=== PATIENT | male | born 2000 | race Caucasian/White ===

== ENCOUNTER → 2021-03-12 00:01 | Outpatient (BNVA) | payer SELFPAY | PROVIDERS: Family Provider Nurse Practitioner Family; Visit Provider Nurse Practitioner Family | DX: R07.9 Chest pain, unspecified (principal); R10.11 Right upper quadrant pain; K21.9 Gastro-esophageal reflux disease without esophagitis; R03.0 Elevated blood-pressure reading, without diagnosis of hypertension; Z68.43 Body mass index [BMI] 50.0-59.9, adult; F17.210 Nicotine dependence, cigarettes, uncomplicated | CPT/HCPCS: 80053; 80061; 82607; 83036; 83735; 84443; 85025 ==

== ENCOUNTER → 2021-04-19 14:00 | Outpatient (BNVA) | payer SELFPAY | PROVIDERS: PCP Nurse Practitioner Family; Visit Provider Nurse Practitioner Family | DX: R74.01 Elevation of levels of liver transaminase levels (principal); D72.829 Elevated white blood cell count, unspecified | CPT/HCPCS: 84460; 85025 ==

== ENCOUNTER → 2021-04-20 09:37 | Outpatient (BNVA) | payer SELFPAY | PROVIDERS: PCP Nurse Practitioner Family; Visit Provider Nurse Practitioner Family | DX: R03.0 Elevated blood-pressure reading, without diagnosis of hypertension (principal); R74.01 Elevation of levels of liver transaminase levels; D72.829 Elevated white blood cell count, unspecified | CPT/HCPCS: 80076 ==

== ENCOUNTER → 2021-05-07 16:30 | Outpatient (BNVA) | payer SELFPAY | PROVIDERS: PCP Nurse Practitioner Family; Visit Provider Nurse Practitioner Family | DX: R79.89 Other specified abnormal findings of blood chemistry (principal) | CPT/HCPCS: 86705; 86706; 86709; 86803; 87340 ==

== ENCOUNTER 2021-06-20 08:32 | Outpatient (CLI) | payer SELFPAY ==
--- NOTE | 2021-06-20 08:45 | US_ITS ---
WS: [id number] ULTRASOUND ABDOMEN CLINICAL INFORMATION: R10.11 - Right upper quadrant pain COMPARISON: None. FINDINGS: Technically difficult examination due to body habitus. Liver Size: Enlarged Craniocaudal length: Measurements not obtained due to body habitus Echogenicity: Diffuse fatty infiltration Surface nodularity: None. Mass (size and location): None. Bile ducts Intrahepatic ducts: Normal. Common bile duct diameter: Not visualized Gallbladder Difficult to visualize but appears normal Gallstones: None. Gallbladder sludge: None. Gallbladder wall thickening: None. Pericholecystic fluid: None. Sonographic Colby sign: Absent. Pancreas Not well seen Spleen Splenomegaly: Enlarged Craniocaudal length: 16.0 cm. Right kidney: Normal where visualized Hydronephrosis: None. Size: 12.1 cm x 5.8 cm x 5.2 cm Left kidney: Slightly prominent left renal pelvis Hydronephrosis: None Size: 12.9 cm x 5.1 cm x 5.3 cm. Abdominal aorta and IVC Visualized portions are normal. Ascites: None. US/US abdomen complete* [id number] IMPRESSION: Technically difficult examination due to body habitus. 1. Hepatomegaly with diffuse fatty infiltration. 2. Limited evaluation of the gallbladder which appears normal where visualized . 3. Common bile duct not seen. 4. Right kidney appears normal. Slightly prominent left renal pelvis. 5. Splenomegaly measuring 16.0 cm [id number].
== END 2021-06-20 08:33 | disposition home or self-care (01) ==
PROVIDERS: PCP Nurse Practitioner Family; Visit Provider Nurse Practitioner Family
DX: R10.11 Right upper quadrant pain (principal); R79.89 Other specified abnormal findings of blood chemistry; R16.0 Hepatomegaly, not elsewhere classified; K76.0 Fatty (change of) liver, not elsewhere classified; R16.1 Splenomegaly, not elsewhere classified
CPT/HCPCS: 76700

== ENCOUNTER → 2021-06-25 14:05 | Outpatient (BNVA) | payer SELFPAY | PROVIDERS: PCP Nurse Practitioner Family; Visit Provider Nurse Practitioner Family | DX: R16.1 Splenomegaly, not elsewhere classified (principal) | CPT/HCPCS: 86308 ==

== ENCOUNTER 2021-07-12 11:35 | Outpatient (CLI) | payer SELFPAY ==
[2021-07-12] MEDS: iohexol 300 mg/mL 50 mL Btl PO (11:57)
[2021-07-12] MEDS: iohexol 350 mg/mL 100 mL Btl IV (13:18)
--- NOTE | 2021-07-12 13:30 | CT_ITS ---
WS: [id number] CT ABDOMEN PELVIS TECHNIQUE: Contrast-enhanced CT of the abdomen and pelvis with coronal and sagittal reformatted image s. CLINICAL INFORMATION: R10.11 - Right upper quadrant pain COMPARISON: None. DLP: 2158.[address] scans at [facility] use at least one of these dose optimization techniques: automat ed exposure control; mA and/or kV adjustment per patient size (includes targeted exams where dose is matched to clinical indication); or iterative reconstruction. FINDINGS: Hepatomegaly with diffuse fatty infiltration. Normal portal vein and splenic vein. Splenomegaly. Norm al GE junction. Lung bases are well aerated. Normal pancreas. Normal gallbladder. No intrahepatic norma iary ductal dilatation. Adrenal glands are normal. Normal renal parenchymal enhancement. No hydronephrosis. Normal caliber abdominal aorta. No abdominal or pelvic lymphadenopathy. No inguinal lymphadenopathy. Normal sigmoid colon. A few diverticuli. No evidence of small or large bowel obstruction. A few promi nent lymph nodes along the central mesentery and right lower quadrant likely reactive. This can be se en with mesenteric adenitis. Normal appendix in the right lower quadrant. Mild disc space narrowing with vacuum disc phenomenon L4-L5 and L5-S1. Chronic appearing anterior wed ging compression deformities at T9-T12. CT/CT abdomen pelvis w con* [id number] IMPRESSION: 1. Diffuse fatty infiltration of the liver. Hepatomegaly. 2. Splenomegaly measuring 16 cm pole to pole. Small splenule. 3. Normal renal parenchymal enhancement. No hydronephrosis. 4. Normal caliber abdominal aorta. 5. A few prominent lymph nodes along the central mesentery and right lower aron drant likely reactive and can be seen with mesenteric adenitis. 6. No free fluid in the abdomen or pelvis. 7. Chronic appearing anterior wedging compression deformities at T9-T12. Mild disc space narrowing L4-L5 and L5-S1.
== END 2021-07-12 11:36 | disposition home or self-care (01) ==
LOC: RADWPI 11:37
PROVIDERS: PCP Nurse Practitioner Family; Visit Provider Nurse Practitioner Family
DX: R10.11 Right upper quadrant pain (principal); R79.89 Other specified abnormal findings of blood chemistry; K76.0 Fatty (change of) liver, not elsewhere classified; R16.1 Splenomegaly, not elsewhere classified; R16.0 Hepatomegaly, not elsewhere classified
CPT/HCPCS: 74177; Q9967

== ENCOUNTER → 2021-08-22 16:24 | Outpatient (BNVA) | payer SELFPAY | PROVIDERS: PCP Nurse Practitioner Family; Visit Provider Nurse Practitioner Family | DX: R00.2 Palpitations (principal); I10 Essential (primary) hypertension | CPT/HCPCS: 80053; 80061; 84443; 85025 ==

== ENCOUNTER 2022-12-27 23:58 | Emergency (ER) | payer SELFPAY ==
--- NOTE | 2022-12-28 00:02 | XRR_ITS ---
PROCEDURE INFORMATION: Exam: XR Chest Exam date and time: 12/28/2022 12:33 AM Age: 22 years old Clinical indication: Pain; Chest pressure; Additional info: Cp TECHNIQUE: Imaging protocol: Radiologic exam of the chest. Views: 1 view. COMPARISON: CR XR chest 2V* [id number] 05/09/2018 9:33 PM FINDINGS: Lungs: Unremarkable. No consolidation. Pleural spaces: Unremarkable. No pleural effusion. No pneumothorax. Heart/Mediastinum: Unremarkable. No cardiomegaly. Bones/joints: Unremarkable. XR/XR chest 1V portable [id number] IMPRESSION: No acute findings. Stable appearance of the chest compared with 05/09/2018.
[2022-12-28 00:03] VITALS: BP 160/82; PULSE 92; RESP 18; TEMP 36.6; O2SAT 97; BMI 52.7
--- NOTE | 2022-12-28 00:10 | ECG_ITS ---
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 Measurements Intervals [place] Rate: 94 P: -6 MD: 155 QRS: 48 QRSD: 94 T: 15 QT: 349 QTc: 438 Interpretive Statements SINUS RHYTHM Compared to ECG 05/10/2018 00:25:46 No significant changes Electronically Signed On 12-28-2022 8:48:50 EXHIBIT TECHNICIAN by Joyce Carter M.D. [id number]
[2022-12-28 00:26] VITALS: BP 164/73; PULSE 85; RESP 16; O2SAT 97
[2022-12-28] MEDS: labetalol 5 mg/mL SDV 20mL 10 MG IVP (00:31)
[2022-12-28 00:32] LABS: Basophils # 0.1 10^3/uL (0.0-0.1); Basophils % 0.6 %; Eosinophils # 0.2 10^3/uL (0.0-0.8); Eosinophils % 1.6 %; Hematocrit 44.5 % (42.0-52.0); Hemoglobin 14.1 g/dL (11.7-16.6); Lymphocytes % 23.8 %; Mean Corpuscular HGB Conc 31.7 g/dL (30.0-36.0); Mean Corpuscular Hemoglobin 26.7 pg (28.0-34.0); Mean Corpuscular Volume 84.3 fl (80-94); Mean Platelet Volume 10.9 fL (7.4-10.4); Monocytes # 0.7 10^3/uL (0.2-0.9); Monocytes % 5.6 %; Neutrophils # 8.56 10^3/uL (1.8-7.7); Neutrophils % 68.2 %; Nucleated Red Blood Cells % 0 %; Platelet Count 269 10^3/cmm (130-400); Red Blood Count 5.28 10^6/uL (4.1-5.3); Red Cell Distribution Width 12.9 % (12.1-15.1); White Blood Count 12.5 10^3/uL (4.0-10.0)
--- NOTE | 2022-12-28 00:33 | W.ED.CHESTPA ---
HPI - Chest Pain General: Chief Complaint: Chest Pain Stated Complaint: cp, left arm pain Time Seen by Provider: 12/28/22 00:02 Source: patient Mode of arrival: ambulatory Limitations: no limitations History of Present Illness: 22-year-old male states that he has had chronic chest pain for years he states he is having some chest pain throughout the day he is having some pain in his left arm as well that concerned him states he had a history of hypertension was on metoprolol but was taken off of it he is hypertensive here he states the pain is currently a 1 out of 10 denies any shortness of breath denies any nausea or diaphoresis. Associated symptoms: Deny abdominal pain, dyspnea, fever(s), nausea or vomiting Review of Systems Const: Denies: fever(s), chills, body aches or change in appetite Eyes: Denies: blurry vision or eye discomfort ENMT: Denies: throat pain or dental pain Card: Reports: chest pain Resp: Denies: dyspnea GI: Denies: abdominal pain, nausea, vomiting or diarrhea : Denies: dysuria Musc: Denies: neck pain or back pain Skin/Breast: Denies: rash Neuro: Denies: headache(s) Psych: Denies: depression Alejandro/Lymph: Denies: easy bruising All/Imm: Denies: urticaria PFSH ED PFSH: Medical History GERD (gastroesophageal reflux disease) No pertinent past medical history Surgical History No pertinent past surgical history Family History Mother Hypertension Denies family history of Diabetes Clotting disorder Bleeding disorder Cancer Stroke Social History Smoking and tobacco status: former smoker Second hand smoke exposure: No Alcohol intake: current Alcohol intake frequency: holidays/special occasions only Alcohol type: beer and hard liquor Lives independently: Yes Household members: significant other Marital status: Life Partner service: No Current occupational status: employed Current occupation: [employer] History of recent travel: No Current gender identity: Male Special corine needs: No Agree to transfusion: Yes Physical Exam Const: COMMON NORMALS: no acute distress, patient oriented x3 and healthy appearing HENMT: COMMON NORMALS: normocephalic and atraumatic HEAD & SCALP: normocephalic and atraumatic Eye: COMMON NORMALS: Equal, round and reactive pupils present and EOMs intact bilaterally PUPIL: Yes Equal, round and reactive pupils present Neck/C-Spine: COMMON NORMALS: full ROM and supple Chest: COMMONS NORMALS: normal inspection of the chest and normal palpation of entire chest wall Resp: COMMON NORMALS: normal respiratory effort, No retractions, No use of accessory muscles and clear to auscultation bilaterally AUSCULTATION: clear to auscultation bilaterally Cardio: COMMON NORMALS: regular rate, regular rhythm and No murmurs present (Cardio) RATE: regular rate RHYTHM: regular rhythm GI: COMMON NORMALS: Normal to inspection, nondistended, normoactive bowel sounds present, Soft to palpation, non-tender and no masses PALPATION: Yes Soft to palpation Extremity: COMMON NORMALS: normal to inspection and full ROM Neuro: COMMON NORMALS: patient oriented x3, moves all extremities and no focal motor deficits Psych: COMMON NORMALS: mental status grossly normal, Normal thought process present and cooperative THOUGHT PROCESS: Normal thought process present Skin: COMMON NORMALS: no rashes or lesions noted and no wounds GENERAL SKIN EXAM: no rashes or lesions noted Course Vital Signs: Vital signs: Vital Signs Temperature 97.9 F 12/28/22 00:03 Pulse Rate 85 12/28/22 00:26 Respiratory Rate 16 12/28/22 00:26 Blood Pressure 164/73 12/28/22 00:26 Pulse Oximetry 97 12/28/22 00:26 Oxygen Delivery Me thod 12/28/22 00:26 MDM - Chest Pain Medical Decision Making Patient presents for chest pains atypical in nature his troponin here is normal he does have hypertension here we will restart him back on his metoprolol he has no signs acute coronary syndrome no signs of dissection or pulm embolism he is stable for discharge he is to follow-up with PCP and return if worsening. Lab Data 12/28/22 00:22 12/28/22 00:22 Radiology Impressions Chest X-Ray 12/28/22 00:02 IMPRESSION: No acute findings. Stable appearance of the chest compared with 05/09/2018. Laboratory Results WBC 12.5 10^3/uL (4.0-10.0) H 12/28/22 00:22 RBC 5.28 10^6/uL (4.1-5.3) 12/28/22 00:22 Hgb 14.1 g/dL (11.7-16.6) 12/28/22 00:22 Hct 44.5 % (42.0-52.0) 12/28/22 00:22 MCV 84.3 fl (80-94) 12/28/22 00:22 MCH 26.7 pg (28.0-34.0) L 12/28/22 00:22 MCHC 31.7 g/dL (30.0-36.0) 12/28/22 00:22 RDW 12.9 % (12.1-15.1) 12/28/22 00:22 Plt Count 269 10^3/cmm (130-400) 12/28/22 00:22 MPV 10.9 fL (7.4-10.4) H 12/28/22 00:22 Neut % (Auto) 68.2 % 12/28/22 00:22 Lymph % (Auto) 23.8 % 12/28/22 00:22 [place] % (Auto) 5.6 % 12/28/22 00:22 Eos % (Auto) 1.6 % 12/28/22 00:22 Baso % (Auto) 0.6 % 12/28/22 00:22 Neut # (Auto) 8.56 10^3/uL (1.8-7.7) H 12/28/22 00:22 Lymph # (Auto) 3.0 10^3/uL (0.8-4.8) 12/28/22 00:22 [place] # (Auto) 0.7 10^3/uL (0.2-0.9) 12/28/22 00:22 Eos # (Auto) 0.2 10^3/uL (0.0-0.8) 12/28/22 00:22 Baso # (Auto) 0.1 10^3/uL (0.0-0.1) 12/28/22 00:22 Nucleated RBC % (auto) 0 % 12/28/22 00:22 Nucleated RBCs # 0.0 /100WBC 12/28/22 00:22 Sodium 138 mmol/L (136-145) 12/28/22 00:22 Potassium 4.3 mmol/L (3.5-5.1) 12/28/22 00:22 Chloride 100 mmol/L (98-107) 12/28/22 00:22 Carbon Dioxide 26 mmol/L (22-29) 12/28/22 00:22 Anion Gap 16.3 (5-19) 12/28/22 00:22 BUN 9 mg/dL (6-20) 12/28/22 00:22 Creatinine 0.7 mg/dL (0.7-1.2) 12/28/22 00:22 GFR Calculation 141.0 mL/min (90-130) H 12/28/22 00:22 Glucose 83 mg/dL (65-115) 12/28/22 00:22 Calculated Osmolality 284 mOsm/kg (285-295) L 12/28/22 00:22 Calcium 9.6 mg/dL (8.5-10.5) 12/28/22 00:22 Total Bilirubin 0.4 mg/dL (0.15-1.2) 12/28/22 00:22 AST 20 U/L (0-40) 12/28/22 00:22 ALT 34 U/L (0-41) 12/28/22 00:22 Alkaline Phosphatase 85 U/L (40-130) 12/28/22 00:22 Troponin T Baseline 6 ng/L (0-15) 12/28/22 00:22 Total Protein 7.2 g/dL (6.6-8.7) 12/28/22 00:22 Albumin 4.4 g/dL (3.5-5.2) 12/28/22 00:22 Globulin 2.8 g/dL (1.3-4.6) 12/28/22 00:22 EKG Data EKG 1: I personally reviewed and interpreted this EKG as follows: EKG interpretation date: 12/28/22 EKG interpretation time: 00:10 Interpretation: nsr hr [address] or t wave abnormalities qrs 94 qtc 401 Discharge Plan Discharge Patient Disposition: Home Clinical Impression: Chest pain, Hypertension Condition: Stable Prescriptions: Continued metoprolol succinate 25 mg tablet extended release 24 hr 25 mg PO DAILY Qty: 30 5RF No Action acetaminophen [Tylenol] 325 mg tablet 650 mg PO QID PRN (Reason: fever or pain) Discharge Orders: Discharge ED (Routine); Ordered 12/28/22 Ordered By: Rianna Roa Referrals: Layla Flores FNP-C [Primary Care Provider] - 1-3 days Discharge Diet: Advance as tolerated Discharge Activity: Resume usual activity Patient Instructions: Chest Pain (ED) Coding Level of Care Code ED Power Reactor Supervisor for Chg Fwd Exam Comprehensive
[2022-12-28 00:54] LABS: Troponin(5th) Baseline 6 ng/L (0-15)
[2022-12-28 00:56] LABS: Alanine Aminotransferase 34 U/L (0-41); Albumin Level 4.4 g/dL (3.5-5.2); Alkaline Phosphatase 85 U/L (40-130); Anion Gap 16.3 (5-19); Aspartate Amino Transferase 20 U/L (0-40); Blood Urea Nitrogen 9 mg/dL (6-20); Calcium 9.6 mg/dL (8.5-10.5); Carbon Dioxide 26 mmol/L (22-29); Chloride 100 mmol/L (98-107); Globulin 2.8 g/dL (1.3-4.6); Glucose 83 mg/dL (65-115); Osmolality Calculated 284 mOsm/kg (285-295); Potassium 4.3 mmol/L (3.5-5.1); Sodium 138 mmol/L (136-145); Total Bilirubin 0.4 mg/dL (0.15-1.2); Total Protein 7.2 g/dL (6.6-8.7)
== END 2022-12-28 01:10 | disposition home or self-care (01) ==
PROVIDERS: Emergency Provider Emergency Medicine; PCP Nurse Practitioner Family
DX: R07.9 Chest pain, unspecified (principal); I10 Essential (primary) hypertension; Z87.891 Personal history of nicotine dependence
CPT/HCPCS: 71045; 80053; 84484; 85025; 93005; 96374; 99285; J3490

== ENCOUNTER 2023-12-03 09:35 | Emergency (ER) | payer SELFPAY ==
[2023-12-03 09:41] VITALS: BMI 34.9
[2023-12-03 09:42] VITALS: BP 121/66; PULSE 74; RESP 16; TEMP 37.1; O2SAT 98
[2023-12-03 13:00] VITALS: BP 171/82; BP 172/104; PULSE 80; PULSE 98; O2SAT 97
--- NOTE | 2023-12-03 13:30 | ED_ITS ---
HPI - Syncope 2 General: Chief Complaint: Syncope Stated Complaint: Syncopal episode Time Seen by Provider: 12/03/23 13:13 History of Present Illness: 23-year-old male patient comes in for ep isode of syncope. Patient reports that he was in class reading and manual when he become lightheaded and feeling faint. Patient got up to walk to the back of the class in order to catch his breath and became nauseous and passed out. EMS arrived and blood sugar was 88, blood pressure was 110 systolic, EKG was normal sinus rhythm. Patient has a history of hypertension but does not take medication at this time. Patient is morbidly obese. Review of Systems 2 General: Reports: 10 or more systems reviewed and unremarkable except in HPI and below Neuro: Reports: other (Near syncope, dizziness) PFS ED 2 PFSH: Medical History GERD (gastroesophageal reflux disease) No pertinent past medical history Surgical History No pertinent past surgical history Family History Mother Hypertension Denies family history of Diabetes Clotting disorder Bleeding disorder Cancer Stroke Social History Smoking and tobacco/nicotine status: former use of tobacco/nicotine Second hand smoke exposure: No Alcohol intake: current Alcohol intake frequency: holidays/special occasions only Alcohol type: beer and hard liquor Substance/Drug Use: never Lives independently: Yes Household members: significant other Marital status: Life Partner service: No Current occupational status: employed Current occupation: [employer] Current gender identity: Male Special corine needs: No Agree to transfusion: Yes Physical Exam 2 Const: COMMON NORMALS: alert HENMT: COMMON NORMALS: normocephalic and Normal external nose present HEAD & SCALP: normocephalic NOSE: Normal external nose present MOUTH: Normal oral and palatal mucosa present Neck/C-Spine: COMMON NORMALS: full ROM and no meningeal signs Resp: COMMON NORMALS: normal respiratory effort and clear to auscultation bilaterally AUSCULTATION: clear to auscultation bilaterally Cardio: COMMON NORMALS: regular rate and regular rhythm RATE: regular rate RHYTHM: regular rhythm GI: COMMON NORMALS: Soft to palpation and non-tender PALPATION: Yes Soft to palpation Back/Pelvis: COMMON NORMALS: thoracic and lumbar spine normal to inspection Extremity: COMMON NORMALS: normal to inspection Neuro: SENSORIUM/ORIENTATION: Yes alert MENINGEAL SIGNS: Yes no meningeal signs Skin: COMMON NORMALS: turgor normal GENERAL SKIN EXAM: turgor normal Course 2 Vital Signs: Vital signs: Vital Signs Temperature 98.7 F 12/03/23 09:42 Pulse Rate 74 12/03/23 09:42 Respiratory Rate 16 12/03/23 09:42 Blood Pressure 121/66 12/03/23 09:42 Pulse Oximetry 98 12/03/23 09:42 Oxygen Delivery Me thod Room Air 12/03/23 09:42 MDM - Syncope Medical Decision Making 23-year-old male patient comes in today for complaints of syncopal episode. Patient appears nontoxic. Abdomen soft nontender. No pain is noted in the neck or spine. Heart rates regular. Lungs are clear to auscultation. No edema is noted in the extremities. Vital signs are normal. Patient did admit that he had not eaten breakfast. Differential diagnosis includes not limited to vasovagal syncope, BPV, anxiety disorder, electrolyte imbalance, cardiac arrhythmia. EKG reviewed from EMS noted sinus rhythm. Laboratory values CBC and BMP were unremarkable. Orthostatic blood pressures noted elevation in his blood pressure without tachycardia. Believe patient probably most likely had some episodes of orthostatic hypotension versus vasovagal syncope secondary to uncontrolled hypertension. Discussed need to follow-up with primary care for repeat evaluation of blood pressure return to ED for new concerns. Family and patient both reported understanding. Lab Data 12/03/23 13:38 12/03/23 13:38 Laboratory Results WBC 7.83 10^3/uL (3.29-11.43) 12/03/23 13:38 RBC 5.56 10^6/uL (3.85-5.65) 12/03/23 13:38 Hgb 15.40 g/dL (11.27-16.99) 12/03/23 13:38 Hct 48.1 % (37-53) 12/03/23 13:38 MCV 86.5 fl (82-101) 12/03/23 13:38 MCH 27.7 pg (27-33) 12/03/23 13:38 MCHC 32.0 g/dL (30-55) 12/03/23 13:38 RDW 12.8 % (12.1-15.1) 12/03/23 13:38 Plt Count 221 10^3/cmm (157-399) 12/03/23 13:38 MPV 11.5 fL (7.4-10.4) H 12/03/23 13:38 Neut % (Auto) 86.6 % 12/03/23 13:38 Lymph % (Auto) 6.6 % 12/03/23 13:38 [place] % (Auto) 5.9 % 12/03/23 13:38 Eos % (Auto) 0.3 % 12/03/23 13:38 Baso % (Auto) 0.5 % 12/03/23 13:38 Neut # (Auto) 6.78 10^3/uL (1.8-7.7) 12/03/23 13:38 Lymph # (Auto) 0.5 10^3/uL (0.8-4.8) L 12/03/23 13:38 [place] # (Auto) 0.5 10^3/uL (0.2-0.9) 12/03/23 13:38 Eos # (Auto) 0.0 10^3/uL (0.0-0.8) 12/03/23 13:38 Baso # (Auto) 0.0 10^3/uL (0.0-0.1) 12/03/23 13:38 Nucleated RBC % (auto) 0 % 12/03/23 13:38 Nucleated RBCs # 0.0 /100WBC 12/03/23 13:38 Sodium 138 mmol/L (136-145) 12/03/23 13:38 Potassium 4.2 mmol/L (3.5-5.1) 12/03/23 13:38 Chloride 102 mmol/L (98-107) 12/03/23 13:38 Carbon Dioxide 26 mmol/L (22-29) 12/03/23 13:38 Anion Gap 14.2 (5-19) 12/03/23 13:38 BUN 9 mg/dL (6-20) 12/03/23 13:38 Creatinine 0.8 mg/dL (0.7-1.2) 12/03/23 13:38 GFR Calculation 119.8 mL/min (90-130) 12/03/23 13:38 Glucose 99 mg/dL (65-115) 12/03/23 13:38 POC Glucose 89 mg/dL (70-110) 12/03/23 13:49 Calculated Osmolality 285 mOsm/kg (285-295) 12/03/23 13:38 Calcium 10.0 mg/dL (8.5-10.5) 12/03/23 13:38 No radiology studies performed this visit Discharge Plan Discharge Patient Disposition: Home Clinical Impression: Vasovagal syncope Hypertension Qualifiers: Hypertension type: unspecified Qualified Code(s): I10 - Essential (primary) hypertension Condition: Stable Prescriptions: No Action acetaminophen [Tylenol] 325 mg tablet 650 mg PO QID PRN (Reason: fever or pain) metoprolol succinate 25 mg tablet extended release 24 hr 25 mg PO DAILY Qty: 30 5RF Discharge Orders: Discharge ED (Routine); Ordered 12/03/23 Ordered By: José Solorzano Referrals: Layla Flores FNP-C [Primary Care Provider] - Discharge Diet: Usual diet Discharge Activity: Increase activity as tolerated Patient Instructions: Hypertension (ED) Activity Restrictions/Additional Instructions: Follow-up with primary care in 1 week for recheck. Drink plenty of water and fluids. Change positions slowly. Return to ED for new concerns. Coding Level of Care Code ED Senior Medical Billing Specialist for Ruby Mace
[2023-12-03 13:58] LABS: Glucose Point of Care 89 mg/dL (70-110)
[2023-12-03 14:04] LABS: Basophils % 0.5 %; Eosinophils % 0.3 %; Hematocrit 48.1 % (37-53); Lymphocytes # 0.5 10^3/uL (0.8-4.8); Lymphocytes % 6.6 %; Mean Corpuscular Hemoglobin 27.7 pg (27-33); Mean Corpuscular Volume 86.5 fl (82-101); Mean Platelet Volume 11.5 fL (7.4-10.4); Monocytes # 0.5 10^3/uL (0.2-0.9); Monocytes % 5.9 %; Neutrophils # 6.78 10^3/uL (1.8-7.7); Neutrophils % 86.6 %; Nucleated Red Blood Cells % 0 %; Platelet Count 221 10^3/cmm (157-399); Red Blood Count 5.56 10^6/uL (3.85-5.65); Red Cell Distribution Width 12.8 % (12.1-15.1); White Blood Count 7.83 10^3/uL (3.29-11.43)
[2023-12-03 14:16] LABS: Anion Gap 14.2 (5-19); Blood Urea Nitrogen 9 mg/dL (6-20); Carbon Dioxide 26 mmol/L (22-29); Chloride 102 mmol/L (98-107); Glomerular Filtration Rate 119.8 mL/min (90-130); Glucose 99 mg/dL (65-115); Osmolality Calculated 285 mOsm/kg (285-295); Potassium 4.2 mmol/L (3.5-5.1); Sodium 138 mmol/L (136-145)
[2023-12-03 14:53] VITALS: BP 163/84; PULSE 81; O2SAT 95
== END 2023-12-03 14:55 | disposition home or self-care (01) ==
PROVIDERS: Emergency Provider Nurse Practitioner Family; PCP Nurse Practitioner Family
DX: R55 Syncope and collapse (principal); I10 Essential (primary) hypertension; Z87.891 Personal history of nicotine dependence
CPT/HCPCS: 36415; 36416; 80048; 82962; 85025; 99284

== ENCOUNTER → 2024-02-17 16:15 | Outpatient (BNVA) | payer SELFPAY | PROVIDERS: PCP Nurse Practitioner Family; Visit Provider Nurse Practitioner Family | DX: I10 Essential (primary) hypertension (principal); F41.9 Anxiety disorder, unspecified | CPT/HCPCS: 80053; 84443; 85025 ==

== ENCOUNTER → 2025-03-23 13:55 | Outpatient (BNVA) | payer SELFPAY | PROVIDERS: PCP Nurse Practitioner Family; Visit Provider Clinical Nurse Specialist Adult Health | DX: I10 Essential (primary) hypertension (principal); F41.1 Generalized anxiety disorder | CPT/HCPCS: 80053; 80061; 84443; 85025 ==

== ENCOUNTER → 2025-06-27 08:48 | Outpatient (BNVA) | payer MEDICAID, SELFPAY | PROVIDERS: PCP Clinical Nurse Specialist Adult Health; Visit Provider Clinical Nurse Specialist Adult Health | DX: E66.01 Morbid (severe) obesity due to excess calories (principal) | CPT/HCPCS: 80053; 83036 ==

== ENCOUNTER → 2025-09-05 10:18 | Outpatient (BNVA) | payer BC, MEDICAID, SELFPAY | PROVIDERS: PCP Clinical Nurse Specialist Adult Health; Visit Provider Clinical Nurse Specialist Adult Health | DX: I10 Essential (primary) hypertension (principal) | CPT/HCPCS: 80053 ==